=== PATIENT | female | born 1960 | race Caucasian/White ===

== ENCOUNTER 2017-02-04 00:46 | Emergency (ER) | payer OTHER ==
[~2017-02-04] VITALS: Ht 157.5 cm; Wt 85.8 kg
[~2017-02-04 00:46] MED LIST: ADVAI100I; ALBU0.086 NEB; CLAR5TAB PO; EXFO5TAB PO; HYDR-3533 PO; HYDR10TA16 PO; MONT10TA2 PO; PRED20 PO
[2017-02-04 00:53] VITALS: BP 148/78; PULSE 93; RESP 16; TEMP 97.6; O2SAT 99
[2017-02-04] MEDS ORDERED: LOSA25TA PO (01:14)
[2017-02-04] MEDS ORDERED: VENTAER INH (01:14)
[2017-02-04] MEDS ORDERED: SYMB160A INH (01:14)
[2017-02-04] MEDS ORDERED: AMLO5TAB2 PO (01:14)
[2017-02-04] MEDS ORDERED: ASPI81CH37 CHEW (01:15)
--- NOTE | 2017-02-04 01:51 | PD ---
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 There is no loss of consciousness but the patient does have some slight nausea and a headache. She hit her right parietal area. PFSH Past Medical History Hx Anticoagulant Therapy: Yes (ASA 81MG DAILY) Arthritis: Yes Asthma: Yes Autoimmune Disease: No Heart Rhythm Problems: Yes (MVP) Cancer: No Cardiovascular Problems: Yes (htn on meds) High Cholesterol: No Chemotherapy: No Chest Pain: No Congestive Heart Failure: No COPD: No Diminished Hearing: No Endocrine: No Gastrointestinal Disorders: Yes GERD: No Genitourinary: No Hiatal Hernia: No Hypertension: Yes Immune Disorder: No Implanted Vascular Access Dvce: Yes Musculoskeletal: Yes Neurologic: Yes Psychiatric: No Reproductive: No Respiratory: Yes (asthma) Immunizations Current: Yes Migraines: Yes Radiation Therapy: No Sleep Apnea: No Ulcer: No Influenza Vaccination: Yes ?: Not Menopausal: Yes Past Surgical History Abdominal Surgery: Yes Cholecystectomy: Yes Joint Replacement: Yes (BILAT PARTIAL KNEES) Pacemaker: No Tonsillectomy: Yes Other Surgery: Yes Social History Alcohol Use: No Tobacco Use: Yes (06/18 PPD) Substance Use: No Allergies-Medications (Allergen,Severity, Reaction): Coded Allergies: amoxicillin (Unverified Allergy, Severe, Nausea/Vomiting, 01/27/17) benzonatate (Unverified Allergy, Severe, RASH, 01/27/17) clavulanic acid (Unverified Allergy, Severe, Nausea/Vomiting, 01/27/17) codeine (Unverified Allergy, Severe, Rash, 01/27/17) sulfamethoxazole (Unverified Allergy, Severe, 01/27/17) trimethoprim (Unverified Allergy, Severe, 01/27/17) Reported Meds & Prescriptions Reported Meds & Active Scripts Active Reported Aspirin Low Dose (Aspirin) 81 Mg Chew 81 Mg CHEW DAILY Losartan (Losartan Potassium) 25 Mg Tab 25 Mg PO DAILY Amlodipine (Amlodipine Besylate) 5 Mg Tab 5 Mg PO DAILY Symbicort Inh (Budesonide/Formoterol Fumarate) 160-4.5 Mcg/Act Aero 1 Puff INH Q12HR Ventolin Hfa 18 GM Inh (Albuterol Sulfate) 90 Mcg/Act Aer 2 Puff INH Q4H PRN Review of Systems Except as stated in HPI: all other systems reviewed are Neg Physical Exam Narrative GENERAL: Well-nourished, well-developed patient in minimal apparent distress with her mild headache. Her vital signs show temperature 97.6, pulse 93, blood pressure 148/78 but are otherwise normal. SKIN: Focused skin assessment warm/dry. HEAD: Normocephalic. I do not see any contusion and there is an area of tenderness over the right parietal area which is diffuse but no associated bony deformity of the skull. Neither raccoon eyes nor barboza sign is present. EYES: No scleral icterus. No injection or drainage. NECK: Supple, trachea midline. No JVD or lymphadenopathy. No posterior spinous process deformity or tenderness is present. CARDIOVASCULAR: Regular rate and rhythm without murmurs, gallops, or rubs. RESPIRATORY: Breath sounds equal bilaterally. No accessory muscle use. GASTROINTESTINAL: Abdomen soft, non-tender, nondistended. No guarding or rebound is present. MUSCULOSKELETAL: No cyanosis, or edema. BACK: Nontender without obvious deformity. No CVA tenderness. Data Data Last Documented VS Vital Signs Date Time Temp Pulse Resp B/P (MAP) Pulse Ox O2 Delivery O2 Flow Rate FiO2 02/04/17 01:26 Room Air 02/04/17 00:53 97.6 93 16 148/78 (101) [address] Brain W/O Iv Contrast(Rout) (02/04/17 01:47) [facility] Medical Decision Making Medical Screen Exam Complete: Yes Emergency Medical Condition: Yes Medical Record Reviewed: Yes Interpretation(s) The CT brain is normal. Differential Diagnosis Contusion right parietal area, skull fracture, intracranial bleed, multiple contusions Narrative Course The patient has multiple contusions, all of which are minor. There is no evidence of any intracranial injury. Diagnosis Primary Impression: Multiple contusions Additional Instructions: Take plain Tylenol for pain, this appears to be multiple minor contusions. Return to emergency department if you have any problems. Disposition: 01 DISCHARGE HOME Condition: Stable Rolando Chance MD Feb 04, 2017 01:51
--- NOTE | 2017-02-04 02:33 | RADRPT ---
EXAM DATE/TIME: 02/04/2017 02:11 [facility] COMPARISON: No previous studies available for comparison. INDICATIONS : Trauma. Fall. RADIATION DOSE: 55.75 CTDIvol (mGy) MEDICAL HISTORY : None SURGICAL HISTORY : None. ENCOUNTER: Initial ACUITY: 1 day PAIN SCALE: 5/10 LOCATION: cranial TECHNIQUE: Multiple contiguous axial images were obtained of the head. Using automated exposure control and adj ustment of the mA and/or kV according to patient size, radiation dose was kept as low as reasonably a chievable to obtain optimal diagnostic quality images. DICOM format image data is available electro nically for review and comparison. FINDINGS: CEREBRUM: The ventricles are normal for age. No evidence of midline shift, mass lesion, hemorrhage or acute in farction. No extra-axial fluid collections are seen. POSTERIOR FOSSA: The cerebellum and brainstem are intact. The 4th ventricle is midline. The cerebellopontine angle i s unremarkable. EXTRACRANIAL: The visualized portion of the orbits is intact. SKULL: The calvaria is intact. No evidence of skull fracture. CONCLUSION: Normal examination. Jose Blanco MD on February 04, 2017 at 2:30 Board Certified Radiologist. This report was verified electronically.
[2017-03-04] MEDS ORDERED: HYDR-3583 PO (09:41)
[2017-03-04] MEDS ORDERED: DESL5TAB4 PO (09:41)
[2017-03-04] MEDS ORDERED: SOMA350T PO (09:41)
[2017-03-04] MEDS ORDERED: CITA40TA4 PO (09:41)
== END 2017-02-04 02:55 | disposition home or self-care (01) ==
LOC: PHED 00:46
DX: S09.90XA Unspecified injury of head, initial encounter (principal); W19.XXXA Unspecified fall, initial encounter; I10 Essential (primary) hypertension; Z88.0 Allergy status to penicillin; Z79.82 Long term (current) use of aspirin
CPT/HCPCS: 70450; 99284

== ENCOUNTER 2017-03-15 20:11 | Emergency (ER) | payer OTHER ==
[~2017-03-15] VITALS: Ht 157.5 cm; Wt 86.0 kg
[~2017-03-15 20:11] MED LIST changes: -ADVAI100I; -ALBU0.086 NEB; +AMLO5TAB2 PO; +ASPI81CH37 CHEW; +CITA40TA4 PO; -CLAR5TAB PO; +DESL5TAB4 PO; -EXFO5TAB PO; -HYDR-3533 PO; +HYDR-3583 PO; -HYDR10TA16 PO; +LOSA25TA PO; -MONT10TA2 PO; -PRED20 PO; +SOMA350T PO; +SYMB160A INH; +VENTAER INH
[2017-03-15 20:24] VITALS: BP 131/68; PULSE 81; RESP 20; TEMP 98.1; O2SAT 94
[2017-03-15] MEDS ORDERED: ALBU6.7H INH (20:45)
[2017-03-15] MEDS ORDERED: SODIUM CHLOR 0.9% 1000 ML INJ 1,000 ML IV ONE (20:45)
[2017-03-15] MEDS ORDERED: KETOROLAC TROMETHAMINE 30 MG/ML (IVP) VIAL IV PUSH ONE (20:45)
[2017-03-15] MEDS ORDERED: SODIUM CHLORIDE 0.9% FLUSH 10 ML FLUSH IVF PRN (20:45)
[2017-03-15] MEDS ORDERED: methylPREDNISolone SOD SUCC 125 MG/2 ML VIAL IV PUSH ONE (20:45)
[2017-03-15] MEDS ORDERED: FLUT1INH INH (20:45)
[2017-03-15 20:51] VITALS: RESP 18; O2SAT 97
[2017-03-15] MEDS: RESP: ALBUTEROL 2.5 MG/IPRATROPIUM 0.5 MG NEB (SCH) INH ×3 (20:55→21:21)
[2017-03-15 21:22] VITALS: BP 154/76; PULSE 84; RESP 18; O2SAT 97
[2017-03-15 21:25] LABS: AUTOMATED NEUTROPHIL # 3.1 TH/MM3 (1.8-7.7); BASOPHIL % 0.7 % (0.0-2.0); EOSINOPHIL # 0.3 TH/MM3 (0-0.4); EOSINOPHIL % 5.6 % (0.0-4.0); HEMATOCRIT 44.2 % (35.0-46.0); HEMO FLAGS DIFF FINAL; LYMPH % 18.2 % (9.0-44.0); LYMPHOCYTE # 0.8 TH/MM3 (1.0-4.8); MEAN CELL VOLUME 85.7 FL (80.0-100.0); MEAN CORPUSCULAR HEMOGLOBIN 27.5 PG (27.0-34.0); MEAN CORPUSCULAR HGB CONC 32.1 % (32.0-36.0); MONO % 8.2 % (0.0-8.0); NEUT % 67.3 % (16.0-70.0); PLATELET COUNT 155 TH/MM3 (150-450); RED BLOOD COUNT 5.16 MIL/MM3 (4.00-5.30); RED CELL DISTRIBUTION WIDTH 13.9 % (11.6-17.2); WHITE BLOOD COUNT 4.6 TH/MM3 (4.0-11.0)
--- NOTE | 2017-03-15 21:32 | PD ---
HPI Chief Complaint: Cold / Flu Symptoms Time Seen by Provider: 20:41 Travel History International Travel<30 days: No Contact w/Intl Traveler<30days: No Traveled to known affect area: No History of Present Illness HPI Patient is a 56-year-old female who comes in complaining of cough and headache. She says for the past couple of days she has had coughing with some wheezing. She has been using her albuterol at home without much relief. She is not sure if she has had a fever, she says she just keeps taking Tylenol for fever. She denies nausea or vomiting. She denies any chest pain. She says her head hurts in the front of her head and has been on and off for the past few days. She also has some nasal congestion and sore throat. She did receive her flu shot last week. PFSH Past Medical History Hx Anticoagulant Therapy: Yes (ASA 81MG DAILY) Arthritis: Yes Asthma: Yes Autoimmune Disease: No Heart Rhythm Problems: Yes (MVP) Cancer: No Cardiovascular Problems: Yes (htn on meds) High Cholesterol: No Chemotherapy: No Chest Pain: No Congestive Heart Failure: No COPD: No Diminished Hearing: No Endocrine: No Gastrointestinal Disorders: Yes GERD: No Genitourinary: No Hiatal Hernia: No Hypertension: Yes Immune Disorder: No Implanted Vascular Access Dvce: Yes Musculoskeletal: Yes Neurologic: Yes Psychiatric: No Reproductive: No Respiratory: Yes Immunizations Current: Yes Migraines: Yes Radiation Therapy: No Sleep Apnea: No Ulcer: No Tetanus Vaccination: < 5 Years Influenza Vaccination: Yes ?: Not Menopausal: Yes Past Surgical History Abdominal Surgery: Yes Cholecystectomy: Yes Joint Replacement: Yes (BILAT PARTIAL KNEES) Pacemaker: No Tonsillectomy: Yes Other Surgery: Yes Social History Alcohol Use: No Tobacco Use: Yes (06/18 PPD) Substance Use: No Allergies-Medications (Allergen,Severity, Reaction): Coded Allergies: amoxicillin (Unverified Allergy, Severe, Nausea/Vomiting, 03/15/17) benzonatate (Unverified Allergy, Severe, RASH, 03/15/17) clavulanic acid (Unverified Allergy, Severe, Nausea/Vomiting, 03/15/17) codeine (Unverified Allergy, Severe, Rash, 03/15/17) sulfamethoxazole (Unverified Allergy, Severe, 03/15/17) trimethoprim (Unverified Allergy, Severe, 03/15/17) Reported Meds & Prescriptions Reported Meds & Active Scripts Active Reported Breo Ellipta Inh (Fluticasone/Vilanterol) 100-25 Mcg/Act Inh 1 Puff INH DAILY Use daily at the same time. Proventil Hfa 6.7 GM Inh (Albuterol Sulfate) 90 Mcg/Act Aer 2 Puff INH Q6H PRN Desloratadine 5 Mg Tab 5 Mg PO DAILY Aspirin Low Dose (Aspirin) 81 Mg Chew 81 Mg CHEW DAILY Losartan (Losartan Potassium) 25 Mg Tab 25 Mg PO DAILY Amlodipine (Amlodipine Besylate) 5 Mg Tab 5 Mg PO DAILY Symbicort Inh (Budesonide/Formoterol Fumarate) 160-4.5 Mcg/Act Aero 1 Puff INH Q12HR Ventolin Hfa 18 GM Inh (Albuterol Sulfate) 90 Mcg/Act Aer 2 Puff INH Q4H PRN Review of Systems Except as stated in HPI: all other systems reviewed are Neg General / Constitutional: No: Fever, Chills Eyes: No: Blurred Vision HENT: Positive: Headaches Cardiovascular: No: Chest Pain or Discomfort Respiratory: Positive: Cough, Wheezing Gastrointestinal: No: Nausea, Vomiting Genitourinary: No: Urgency, Dysuria Musculoskeletal: No: Edema, Pain Skin: No Rash, No Change in Pigmentation Neurologic: No: Weakness, Dizziness Physical Exam Narrative GENERAL: Awake and alert, in no acute distress. SKIN: Focused skin assessment warm/dry. HEAD: Atraumatic. Normocephalic. EYES: Pupils equal and round. No scleral icterus. ENT: Mucous membranes pink and moist. No tonsillar swelling or exudates. NECK: Trachea midline. No JVD. CARDIOVASCULAR: Regular rate and rhythm. No murmur appreciated. RESPIRATORY: No accessory muscle use. Coarse breath sounds at the lung bases. Breath sounds equal bilaterally. GASTROINTESTINAL: Abdomen soft, non-tender, nondistended. MUSCULOSKELETAL: No obvious deformities. No clubbing. No cyanosis. No edema. NEUROLOGICAL: Awake and alert. No obvious cranial nerve deficits. Motor grossly within normal limits. Normal speech. PSYCHIATRIC: Appropriate mood and affect; insight and judgment normal. Data Data Last Documented VS Vital Signs Date Time Temp Pulse Resp B/P (MAP) Pulse Ox O2 Delivery O2 Flow Rate FiO2 03/15/17 21:22 84 18 154/76 (102) 97 Room Air 03/15/17 20:24 98.1 Orders Orders Complete Blood Count With Diff (03/15/17 20:45) Comprehensive Metabolic Panel (03/15/17 20:45) Iv Access Insert/Monitor (03/15/17 20:45) Ecg Monitoring (03/15/17 20:45) Oximetry (03/15/17 20:45) Oxygen Administration (03/15/17 20:45) Chest, Pa & Lat (03/15/17 20:45) Sodium Chloride 0.9% Flush (Ns Flush) (03/15/17 20:45) Methylprednisolone So Succ Inj (Solumedr (03/15/17 20:45) Albuterol-Ipratropium Neb (Duoneb Neb) (03/15/17 20:45) Ketorolac Inj (Toradol Inj) (03/15/17 20:45) Sodium Chlor 0.9% 1000 Ml Inj (Ns 1000 M (03/15/17 20:45) Influenzae A/B Antigen (03/15/17 20:45) Labs Laboratory Tests Test 03/15/17 21:05 White Blood Count 4.6 TH/MM3 Red Blood Count 5.16 MIL/MM3 Hemoglobin 14.2 GM/DL Hematocrit 44.2 % Mean Corpuscular Volume 85.7 FL Mean Corpuscular Hemoglobin 27.5 PG Mean Corpuscular Hemoglobin Concent 32.1 % Red Cell Distribution Width 13.9 % Platelet Count 155 TH/MM3 Mean Platelet Volume 8.4 FL Neutrophils (%) (Auto) 67.3 % Lymphocytes (%) (Auto) 18.2 % Monocytes (%) (Auto) 8.2 % Eosinophils (%) (Auto) 5.6 % Basophils (%) (Auto) 0.7 % Neutrophils # (Auto) 3.1 TH/MM3 Lymphocytes # (Auto) 0.8 TH/MM3 Monocytes # (Auto) 0.4 TH/MM3 Eosinophils # (Auto) 0.3 TH/MM3 Basophils # (Auto) 0.0 TH/MM3 CBC Comment DIFF FINAL Differential Comment Blood Urea Nitrogen 8 MG/DL Creatinine 0.56 MG/DL Random Glucose 87 MG/DL Total Protein 7.2 GM/DL Albumin 3.4 GM/DL Calcium Level 9.3 MG/DL Alkaline Phosphatase 134 U/L Aspartate Amino Transf (AST/SGOT) 25 U/L Alanine Aminotransferase (ALT/SGPT) 31 U/L Total Bilirubin 0.6 MG/DL Sodium Level 138 MEQ/L Potassium Level 3.6 MEQ/L Chloride Level 104 MEQ/L Carbon Dioxide Level 27.9 MEQ/L Anion Gap 6 MEQ/L Estimat Glomerular Filtration Rate 112 ML/MIN MDM Medical Decision Making Medical Screen Exam Complete: Yes Emergency Medical Condition: Yes Medical Record Reviewed: Yes Differential Diagnosis Pneumonia versus asthma exacerbation versus URI versus influenza Narrative Course Patient is a 56-year-old female who comes in complaining of cough and cold symptoms with a headache. Exam shows coarse breath sounds bilaterally. IV established, labs sent. Labs show no acute abnormalities. Chest x-ray performed shows no acute abnormalities. Patient given IV fluids, Toradol, Solu-Medrol. Given 3 duo nebs. She reports feeling much better. She'll be discharged with prescriptions for prednisone as well is azithromycin. She is advised follow-up with her doctor. Advised to continue using her albuterol as needed at home. Advised to return to the ED as needed for any worsening symptoms. Diagnosis Primary Impression: Bronchitis Additional Impression: Asthma exacerbation Qualified Codes: J45.901 - Unspecified asthma with (acute) exacerbation Patient Instructions: Acute Bronchitis (ED), Asthma (ED), General Instructions Additional Instructions: Use her albuterol as needed for coughing and shortness of breath. Start the prednisone tomorrow as she had a dose of steroids or any today. He can take [id number] cough medicines as needed. Take ibuprofen or Tylenol as needed for pain or fever. Make sure you drink plenty of fluids and get rest. Follow-up with a primary care doctor. Return to the emergency department as needed for any worsening symptoms. Scripts Prednisone (Prednisone) 50 Mg Tab 50 MG PO DAILY for 3 Days, #3 TAB 0 Refills Prov: Meg Vegas MD 03/15/17 Azithromycin (Zithromax Z-Jose) 250 Mg Dspk 250 MG PO DIRECTED for Infection, #1 DSPK 0 Refills 500 MG (2 tabs) day 1, then 1 tab days 2-5. Prov: Meg Vegas MD 03/15/17 Disposition: 01 DISCHARGE HOME Condition: Stable Meg Vegas MD Mar 15, 2017 21:32
[2017-03-15 21:34] LABS: CHLORIDE 104 MEQ/L (98-107); POTASSIUM 3.6 MEQ/L (3.5-5.1); SODIUM (NA) 138 MEQ/L (136-145)
[2017-03-15 21:37] LABS: ANION GAP 6 MEQ/L (5-15); BICARBONATE 27.9 MEQ/L (21.0-32.0)
[2017-03-15 21:38] LABS: BLOOD UREA NITROGEN 8 MG/DL (7-18)
[2017-03-15 21:40] LABS: ALT (GPT) 31 U/L (10-53); AST (GOT) 25 U/L (15-37)
[2017-03-15 21:41] LABS: GLOMERULAR FILTRATION RATE 112 ML/MIN (>89)
[2017-03-15 21:42] LABS: TOTAL BILIRUBIN ADULT 0.6 MG/DL (0.2-1.0)
--- NOTE | 2017-03-15 21:42 | RADRPT ---
EXAM DATE/TIME: 03/15/2017 20:48 [facility] COMPARISON: No previous studies available for comparison. INDICATIONS : Fever, cough. MEDICAL HISTORY : Asthma. SURGICAL HISTORY : None. ENCOUNTER: Initial ACUITY: 3 days PAIN SCORE: 0/10 LOCATION: Bilateral chest FINDINGS: PA and lateral views of the chest demonstrate the lungs to be symmetrically aerated without evidence of mass, infiltrate or effusion. The cardiomediastinal contours are unremarkable. Osseous structure s are intact. CONCLUSION: The lungs are clear. Paul Castro MD on March 15, 2017 at 21:40 Board Certified Radiologist. This report was verified electronically.
[2017-03-15 21:43] LABS: ALKALINE PHOSPHATASE 134 U/L (45-117)
[2017-03-15] MEDS ORDERED: ZITHTAB PO (21:55)
[2017-03-15] MEDS ORDERED: PRED50 PO (21:55)
[2017-03-15 22:40] VITALS: BP 151/74; PULSE 82; RESP 18; O2SAT 97
== END 2017-03-15 22:58 | disposition home or self-care (01) ==
LOC: PHED 20:11
DX: J45.901 Unspecified asthma with (acute) exacerbation (principal); F17.210 Nicotine dependence, cigarettes, uncomplicated; Z79.82 Long term (current) use of aspirin; I10 Essential (primary) hypertension
CPT/HCPCS: 71020; 80053; 85025; 87804; 94640; 94664; 96361; 96374; 96375; 99284; J1885; J2930; J7030